=== PATIENT | male | born 1950 | race Caucasian/White ===

== ENCOUNTER → 2018-09-28 11:09 | Outpatient (CLI) | payer OTHER, MEDICARE, SELFPAY ==
[2018-09-28 11:50] LABS: Add Manual Diff / Slide Review NO; Basophils Absolute Auto 0 /uL (0-100); Basophils Percent Auto 0.7 % (0-2); Eosinophils Absolute Auto 100 /uL (0-450); Hematocrit 43.4 % (41-53); Hemoglobin 14.8 g/dL (13.5-17.5); Lymphocytes Absolute Auto 2000 /uL (1100-4500); Lymphocytes Percent Auto 30.2 % (25-40); Mean Corpuscular HGB Conc 34.1 % (30-36); Mean Corpuscular Hemoglobin 31.5 PG (26-34); Mean Corpuscular Volume 92.3 fL (80-100); Monocytes Absolute Auto 400 /uL (0-900); Monocytes Percent Auto 6.3 % (3-14); Neutrophils Absolute Auto 4000 /uL (1500-7000); Neutrophils Percent Auto 60.8 % (50-75); Platelet Count 242 X10^3/uL (150-400); Red Blood Cell Count 4.71 X10^6/uL (4.5-5.9); Red Cell Distribution Width 12.7 % (11.6-14.8); White Blood Cell Count 6.5 X10^3/uL (4.5-11.0)
[2018-09-28 12:06] LABS: Alanine Aminotransferase 48 IU/L (21-72); Albumin 4.5 g/dL (3.5-5.0); Albumin Globulin Ratio 1.6 (1.0-2.8); Alkaline Phosphatase 56 U/L (38-126); Aspartate Aminotransferase 36 IU/L (17-59); Bilirubin Total 0.5 mg/dL (0.2-1.3); Blood Urea Nitrogen 16 mg/dL (9-20); Calcium 9.1 mg/dL (8.4-10.2); Carbon Dioxide 30 mmol/L (22-32); Chloride 102 mmol/L (98-107); Cholesterol 167 mg/dL (140-199); Estimated Glomerular Filt Rate > 60.0 mL/min (>60); Globulin 2.9 g/dL (1.7-4.1); Glucose 117 mg/dL (80-110); HDL Cholesterol 39 mg/dL (40-60); HEMOLYSIS 37 (0-50); LDL Cholesterol Calculated 99 mg/dL (<100); Potassium 4.8 mmol/L (3.4-5.1); Sodium 141 mmol/L (137-145); Total Protein 7.4 g/dL (6.3-8.2); Triglycerides 144 mg/dL (35-150)
[2018-09-28 12:32] LABS: Prostate Specific Antigen Scrn 1.99 ng/mL (0.1-4.0)
[2018-09-28 14:11] LABS: Thyroid Stimulating Hormone 1.48 uIU/mL (0.47-4.68)
[2018-09-28 16:58] LABS: Creatinine Urine Random 167.9 mg/dL; Microalbumi Creatinin Ratio Ur 4.1 ug/mg CR (<30); Microalbumin Urine Random 0.7 mg/dL (0-1.6)
== END ==
PROVIDERS: Family Provider Family Medicine; PCP Family Medicine; Visit Provider Family Medicine
DX: E78.2 Mixed hyperlipidemia (principal); E78.5 Hyperlipidemia, unspecified; I10 Essential (primary) hypertension; Z12.5 Encounter for screening for malignant neoplasm of prostate; Z13.29 Encounter for screening for other suspected endocrine disorder
CPT/HCPCS: 36415; 80053; 80061; 82043; 82570; 84443; 85025; G0103

== ENCOUNTER → 2019-05-18 15:06 | Outpatient (CLI) | payer OTHER, MEDICARE, SELFPAY ==
[2019-05-20 18:25] LABS: Rubeola Measles IgG > 300.00 AU/mL (< 25.00)
== END ==
PROVIDERS: PCP Family Medicine; Visit Provider Family Medicine
DX: Z01.84 Encounter for antibody response examination (principal)
CPT/HCPCS: 36415; 86735; 86762; 86765

== ENCOUNTER → 2019-09-16 12:44 | Outpatient (CLI) | payer OTHER, MEDICARE, SELFPAY ==
[2019-09-16 13:14] LABS: Add Manual Diff / Slide Review NO; Basophils Absolute Auto 100 /uL (0-100); Basophils Percent Auto 0.6 % (0-2); Eosinophils Absolute Auto 100 /uL (0-450); Eosinophils Percent Auto 1.4 % (2-4); Hemoglobin 14.6 g/dL (13.5-17.5); Lymphocytes Absolute Auto 2100 /uL (1100-4500); Lymphocytes Percent Auto 22.8 % (25-40); Mean Corpuscular HGB Conc 34.7 % (30-36); Mean Corpuscular Hemoglobin 32.2 PG (26-34); Mean Corpuscular Volume 92.9 fL (80-100); Monocytes Absolute Auto 600 /uL (0-900); Monocytes Percent Auto 6.9 % (3-14); Neutrophils Absolute Auto 6300 /uL (1500-7000); Neutrophils Percent Auto 68.3 % (50-75); Platelet Count 252 X10^3/uL (150-400); Red Blood Cell Count 4.52 X10^6/uL (4.5-5.9); White Blood Cell Count 9.3 X10^3/uL (4.5-11.0)
[2019-09-16 13:15] LABS: Alanine Aminotransferase 31 IU/L (<50); Albumin 4.3 g/dL (3.5-5.0); Albumin Globulin Ratio 1.6 (1.0-2.8); Alkaline Phosphatase 47 U/L (38-126); Aspartate Aminotransferase 35 IU/L (17-59); BUN Creatinine Ratio 25.6 (6-22); Bilirubin Total 0.5 mg/dL (0.2-1.3); Blood Urea Nitrogen 23 mg/dL (9-20); Calcium 9.4 mg/dL (8.4-10.2); Carbon Dioxide 29 mmol/L (22-32); Chloride 105 mmol/L (98-107); Cholesterol 151 mg/dL (140-199); Estimated Glomerular Filt Rate > 60.0 mL/min (>60); Globulin 2.7 g/dL (1.7-4.1); Glucose 119 mg/dL (80-110); HDL Cholesterol 44 mg/dL (40-60); HEMOLYSIS < 15 (0-50); LDL Cholesterol Calculated 90 mg/dL (<100); Potassium 4.5 mmol/L (3.4-5.1); Sodium 142 mmol/L (137-145); Triglycerides 87 mg/dL (35-150)
== END ==
PROVIDERS: PCP Family Medicine; Referring Provider Family Medicine; Visit Provider Family Medicine
DX: Z00.00 Encounter for general adult medical examination without abnormal findings (principal); E78.2 Mixed hyperlipidemia
CPT/HCPCS: 36415; 80053; 80061; 85025

== ENCOUNTER → 2020-01-31 10:08 | Outpatient (CLI) | payer OTHER, MEDICARE, SELFPAY ==
--- NOTE | 2020-01-31 10:11 | DI.US.S_ITS ---
PROCEDURE: US ABDOMEN LIMITED INDICATIONS: RIGHT INGUINAL LUMP; POSSIBLE HERNIA TECHNIQUE: Real-time focused scanning was performed of the abdomen, with image documentation. COMPARISON: None. FINDINGS: The right inguinal region was interrogated with the high megahertz linear transducer. No hernia or mass or adenopathy is identified. IMPRESSION: Unremarkable limited ultrasound of the right inguinal region, with no evidence of hernia. Dictated by: Jac Montero M.D. on 01/31/2020 at 10:40 Approved by: Jac Montero M.D. on 01/31/2020 at 10:44
== END ==
PROVIDERS: PCP Family Medicine; Referring Provider Family Medicine; Visit Provider Family Medicine
DX: K40.90 Unilateral inguinal hernia, without obstruction or gangrene, not specified as recurrent (principal)
CPT/HCPCS: 76705

== ENCOUNTER → 2020-05-16 12:42 | Outpatient (CLI) | payer OTHER, MEDICARE, SELFPAY ==
--- NOTE | 2020-05-16 12:44 | DI.RAD.S_ITS ---
PROCEDURE: XR CHEST 2V INDICATIONS: Cough TECHNIQUE: 2 views of the chest were acquired. COMPARISON: [facility], , CHEST 2 VIEW, 12/03/2016, 20:46. FINDINGS: Surgical changes and devices: None. Lungs and pleura: Lungs are clear. No pleural effusions or pneumothorax. Mediastinum: Mediastinal contours are normal. Heart size is normal. Bones and chest wall: No suspicious bony abnormalities. Soft tissues appear unremarkable. IMPRESSION: No source for cough identified radiographically. Dictated by: Diego Sutherland [facility] Interpreted: Tam Richards MD on 05/16/2020 at 13:17 Approved by: Tam Richards M.D. on 05/16/2020 at 14:52
[2020-05-16 15:23] LABS: Prostate Specific Antigen Scrn 2.48 ng/mL (0.1-4.0)
== END ==
PROVIDERS: PCP Family Medicine; Referring Provider Family Medicine; Visit Provider Family Medicine
DX: R05 Cough (principal); Z12.5 Encounter for screening for malignant neoplasm of prostate
CPT/HCPCS: 36415; 71046; G0103

== ENCOUNTER → 2020-06-27 12:33 | Outpatient (CLI) | payer OTHER, MEDICARE, SELFPAY ==
[2020-06-27 14:43] LABS: Adenovirus F 40/41 Not Detected (Not Detect); Astrovirus Not Detected (Not Detect); Campylobacter Detected (Not Detect); Clostridium difficile toxin AB Not Detected (Not Detect); Cryptosporidium Not Detected (Not Detect); Cyclospora cayetanensis Not Detected (Not Detect); Entamoeba histolytica Not Detected (Not Detect); Enteroaggregative E.coli Not Detected (Not Detect); Enteropathogenic E.coli Not Detected (Not Detect); Enterotoxigenic E.coli It/st Not Detected (Not Detect); Giardia lamblia Not Detected (Not Detect); Norovirus GI/GII Not Detected (Not Detect); Plesiomonsa shigelloides Not Detected (Not Detect); Rotavirus A Not Detected (Not Detect); Salmonella Not Detected (Not Detect); Sapovirus Not Detected (Not Detect); Shiga-like toxin-prod E.coli Not Detected (Not Detect); Shigella/Enteroinvasive E.coli Not Detected (Not Detect); Vibrio Not Detected (Not Detect); Vibrio cholerae Not Detected (Not Detect); Yersinia enterocolitica Not Detected (Not Detect)
== END ==
PROVIDERS: PCP Family Medicine; Referring Provider Family Medicine; Visit Provider Family Medicine
DX: R19.7 Diarrhea, unspecified (principal)
CPT/HCPCS: 36415; 87507

== ENCOUNTER → 2020-10-23 12:36 | Outpatient (CLI) | payer OTHER, MEDICARE, SELFPAY ==
[2020-10-23 13:05] LABS: Add Manual Diff / Slide Review NO; Basophils Absolute Auto 0 /uL (0-100); Basophils Percent Auto 0.7 % (0-2); Eosinophils Absolute Auto 100 /uL (0-450); Eosinophils Percent Auto 1.8 % (2-4); Hematocrit 42.3 % (41-53); Hemoglobin 14.5 g/dL (13.5-17.5); Lymphocytes Absolute Auto 1700 /uL (1100-4500); Lymphocytes Percent Auto 30.1 % (25-40); Mean Corpuscular HGB Conc 34.3 % (30-36); Mean Corpuscular Hemoglobin 31.5 PG (26-34); Mean Corpuscular Volume 91.9 fL (80-100); Monocytes Absolute Auto 400 /uL (0-900); Monocytes Percent Auto 6.9 % (3-14); Neutrophils Absolute Auto 3500 /uL (1500-7000); Neutrophils Percent Auto 60.5 % (50-75); Platelet Count 203 X10^3/uL (150-400); Red Blood Cell Count 4.61 X10^6/uL (4.5-5.9); Red Cell Distribution Width 12.7 % (11.6-14.8); White Blood Cell Count 5.7 X10^3/uL (4.5-11.0)
[2020-10-23 14:13] LABS: Alanine Aminotransferase 31 IU/L (<50); Albumin 4.1 g/dL (3.5-5.0); Albumin Globulin Ratio 1.7 (1.0-2.8); Alkaline Phosphatase 42 U/L (38-126); Aspartate Aminotransferase 41 IU/L (17-59); Bilirubin Total 0.4 mg/dL (0.2-1.3); Blood Urea Nitrogen 34 mg/dL (9-20); Calcium 9.4 mg/dL (8.4-10.2); Carbon Dioxide 28 mmol/L (22-32); Chloride 102 mmol/L (98-107); Cholesterol 144 mg/dL (140-199); Estimated Glomerular Filt Rate > 60.0 mL/min (>60); Globulin 2.4 g/dL (1.7-4.1); Glucose 104 mg/dL (80-110); HDL Cholesterol 38 mg/dL (40-60); HEMOLYSIS < 15 (0-50); LDL Cholesterol Calculated 93 mg/dL (<100); Potassium 4.5 mmol/L (3.4-5.1); Sodium 139 mmol/L (137-145); Total Protein 6.5 g/dL (6.3-8.2); Triglycerides 66 mg/dL (35-150)
== END ==
PROVIDERS: PCP Family Medicine; Referring Provider Family Medicine; Visit Provider Family Medicine
DX: E78.2 Mixed hyperlipidemia (principal); F90.9 Attention-deficit hyperactivity disorder, unspecified type; G47.9 Sleep disorder, unspecified
CPT/HCPCS: 36415; 80053; 80061; 85025

== ENCOUNTER → 2021-01-06 10:06 | Outpatient (CLI) | payer OTHER, MEDICARE, SELFPAY ==
--- NOTE | 2021-01-07 14:19 | P.PCN_ITS ---
Cardiac Stress Test Report Referral & Results Date Patient Seen: 01/07/21 Requesting provider: Jamarcus Mckinnon Indication: Coronary artery disease Rest ECG: Unremarkable Procedure Note: This was started as an exercise Cardiolite test but patient clearly was unable to meet heart rate or blood pressure targets due to dyspnea and fatigue. Therefore was converted to a Lexiscan After both written and verbal informed consent the patient had an IV started by the diagnostic imaging RN and then was hooked up to the treadmill monitoring system. The patient was placed on the treadmill at 1 mile an hour with no elevation and was then injected with the Bertha scan material. The Cardiolite was then immediately administered. The patient spent an additional 2-3 minutes on the treadmill before being returned to the [facility] in the supine position. The patient had a normal response to all infused materials. Impression: There was some ST-T segment ?drooping ?that was upsloping in nature in the inferior and far lateral leads after infusion of Lexiscan material Please see perfusion imaging for further details regarding possible ischemia Please note: Actual ECG tracings can be found in the PACS system.
--- NOTE | 2021-01-07 19:14 | DI.NM.S_ITS ---
DATE OF SERVICE: 01/06/2021 PROCEDURE: Pharmacological perfusion study. INDICATIONS: Shortness of breath with known coronary artery disease. RADIOPHARMACEUTICAL: 25.8 millicurie technetium-99m Myoview IV was injected at stress and 13.0 millicurie technetium-99m Myoview IV was injected at rest. CARDIAC STRESS: The patient underwent IV Lexiscan perfusion study under the supervision of an attending staff ,as per standard intravenous Lexiscan protocol. Prior to that, the patient walked on Gomez protocol for 3 minutes and 20 seconds, however developed fatigue. Heart rate remained less than 100, hence test was converted to IV Lexiscan. Baseline rhythm was sinus. There were some nonspecific ST changes. During walking, as well as Lexiscan, there were no convincing ischemic changes. There was no significant sustained arrhythmias. RAW DATA: There is increased subdiaphragmatic activity. GATED STUDY: Resting LV ejection fraction is 70 percent and stress LV ejection fraction 71 percent. Resting end-diastolic volume 106 mL. TID ratio 0.95, which is within normal limits. Lung/heart ratio 0.28, which is within normal limits. MYOCARDIAL PERFUSION: Stress supine, resting supine and stress prone images were compared to each other. The stress supine and resting supine images revealed small size, mildly decreased perfusion of basal inferior wall, which got resolved during prone images, suggestive of diaphragmatic tissue attenuation artifact. CONCLUSION: I will call this study a normal myocardial perfusion study. Stress prone images revealed normal myocardial perfusion. No convincing ischemia or infarction pattern. Left ventricular function is preserved. No convincing ischemic electrocardiographic changes. The patient has poor exercise tolerance. Had exercise perfusion study in March 2010, at that time, also, had similar perfusion, but he was able to walk for 7 minutes and 36 seconds. Noble Presley - ZOHREH/winnie/ashwini doc#: [id number]/job#: [id number] dd: 01/07/2021 17:25:00 dt: 01/07/2021 18:17:00 DICTATING MD/COPIES TO: Bea Lira MD COPIES MNE: LORENZO;
== END ==
PROVIDERS: PCP Family Medicine; Referring Provider Family Medicine; Visit Provider Family Medicine
DX: Z01.812 Encounter for preprocedural laboratory examination (principal); I25.10 Atherosclerotic heart disease of native coronary artery without angina pectoris; R06.02 Shortness of breath; Z20.822 Contact with and (suspected) exposure to COVID-19
CPT/HCPCS: 78452; 87635; 93016; 93017; 93018; A9502; J2785

== ENCOUNTER → 2021-01-06 11:45 | Outpatient (CLI) | payer OTHER, MEDICARE, SELFPAY ==
[2021-01-06 13:41] LABS: COVID19 -Nasal RAPID Negative (Negative)
== END ==
PROVIDERS: PCP Family Medicine; Referring Provider Physician Assistant; Visit Provider Physician Assistant
DX: Z01.812 Encounter for preprocedural laboratory examination (principal); Z20.822 Contact with and (suspected) exposure to COVID-19
CPT/HCPCS: 87635

== ENCOUNTER → 2021-06-05 14:40 | Outpatient (CLI) | payer OTHER, MEDICARE, SELFPAY ==
--- NOTE | 2021-06-05 14:43 | DI.CT.S_ITS ---
PROCEDURE: CT CHEST WO CON INDICATIONS: Lung nodule 6 month repeat TECHNIQUE: Noncontrast 2.0-2.5 mm thick sections acquired from the pulmonary apices to the posterior costophrenic angles. 7 mm thick axial MIP and 5 mm coronal and sagittal reformats were then acquired. A low radiation dose technique was utilized. COMPARISON: [facility], CT, CT LOW DOSE LUNG CA SCREENING, 11/09/2020, 11:03. November 09, 2020. FINDINGS: Image quality: Diagnostic, given the low radiation dose technique. Lungs and pleura: No consolidation, pleural effusion, or pneumothorax. Redemonstrated 1.3 cm, centrally calcified nodule along the right upper lobe pleura (series 2, image 11). 5.8 mm ground-glass nodule in the left upper lobe (series 5, image 21), unchanged. 5.1 mm ground-glass nodule in the right upper lobe (series 5, image 63), unchanged. 3.2 mm ground-glass nodule in the left upper lobe (series 3, image 56), unchanged. Mediastinum: Heart size is normal. No pericardial effusion. Coronary artery calcification. No mediastinal adenopathy by size criteria. Thoracic aorta and central pulmonary arteries are normal in size. The esophagus is normal in caliber. Trace hiatal hernia. Bones and chest wall: No suspicious bony lesions. No vertebral body compression fractures. No axillary or supraclavicular adenopathy by size criteria. Thyroid gland demonstrates homogeneous attenuation. Abdomen: Visualized upper abdomen solid organs and bowel loops appear normal in the absence of contrast. IMPRESSION: 1. Stable 1.3 cm, centrally calcified nodule along the right upper lobe pleura. 2. Ground-glass nodules in the left upper lobe measuring up to 5.8 mm as detailed above. 3. Ground-glass nodule in the right upper lobe, measuring up to 5.1 mm. Lung Rads: 2. Consider CT lung screen follow-up in 12 months. Dictated by: Armin Nuñez M.D. on 06/05/2021 at 18:30 Approved by: Armin Nuñez M.D. on 06/05/2021 at 18:57
== END ==
PROVIDERS: PCP Family Medicine; Referring Provider Family Medicine; Visit Provider Family Medicine
DX: J43.2 Centrilobular emphysema (principal); R91.8 Other nonspecific abnormal finding of lung field; I25.10 Atherosclerotic heart disease of native coronary artery without angina pectoris
CPT/HCPCS: 71250

== ENCOUNTER → 2021-09-30 10:46 | Outpatient (CLI) | payer OTHER, MEDICARE, SELFPAY ==
--- NOTE | 2021-09-30 10:48 | DI.RAD.S_ITS ---
PROCEDURE: XR CHEST 2V INDICATIONS: Wheezing, emphysema TECHNIQUE: 2 views of the chest were acquired. COMPARISON: [facility], CR, XR CHEST 2V, 05/16/2020, 12:33. FINDINGS: Surgical changes and devices: None. Lungs and pleura: Lungs are clear. No pleural effusions or pneumothorax. Mediastinum: Mediastinal contours are normal. Heart size is normal. Bones and chest wall: No suspicious bony abnormalities. Soft tissues appear unremarkable. IMPRESSION: No acute cardiopulmonary process demonstrated radiographically. Dictated by: Gurdeep Ortiz M.D. on 09/30/2021 at 11:49 Approved by: Gurdeep Ortiz M.D. on 09/30/2021 at 11:53
== END ==
PROVIDERS: PCP Family Medicine; Referring Provider Family Medicine; Visit Provider Family Medicine
DX: R06.2 Wheezing (principal); J43.9 Emphysema, unspecified
CPT/HCPCS: 71046

== ENCOUNTER → 2021-10-27 14:05 | Outpatient (CLI) | payer OTHER, MEDICARE, SELFPAY ==
[2021-10-27 14:38] LABS: Add Manual Diff / Slide Review NO; Basophils Absolute Auto 0 /uL (0-100); Basophils Percent Auto 0.8 % (0-2); Eosinophils Absolute Auto 100 /uL (0-450); Eosinophils Percent Auto 2.5 % (2-4); Hematocrit 41.9 % (41-53); Hemoglobin 14.4 g/dL (13.5-17.5); Lymphocytes Absolute Auto 1600 /uL (1100-4500); Lymphocytes Percent Auto 29.1 % (25-40); Mean Corpuscular HGB Conc 34.3 % (30-36); Mean Corpuscular Hemoglobin 31.7 PG (26-34); Mean Corpuscular Volume 92.3 fL (80-100); Monocytes Absolute Auto 400 /uL (0-900); Monocytes Percent Auto 7.7 % (3-14); Neutrophils Absolute Auto 3400 /uL (1500-7000); Neutrophils Percent Auto 59.9 % (50-75); Platelet Count 190 X10^3/uL (150-400); Red Blood Cell Count 4.53 X10^6/uL (4.5-5.9); Red Cell Distribution Width 12.9 % (11.6-14.8); White Blood Cell Count 5.6 X10^3/uL (4.5-11.0)
[2021-10-27 16:16] LABS: Alanine Aminotransferase 32 IU/L (<50); Albumin 4.2 g/dL (3.5-5.0); Albumin Globulin Ratio 1.8 (1.0-2.8); Alkaline Phosphatase 46 U/L (38-126); Aspartate Aminotransferase 31 IU/L (17-59); BUN Creatinine Ratio 19.2 (6-22); Bilirubin Total 0.5 mg/dL (0.2-1.3); Blood Urea Nitrogen 20 mg/dL (9-20); Carbon Dioxide 26 mmol/L (22-32); Chloride 105 mmol/L (98-107); Cholesterol 161 mg/dL (140-199); Estimated Glomerular Filt Rate > 60.0 mL/min (>60); Globulin 2.4 g/dL (1.7-4.1); Glucose 114 mg/dL (80-110); HDL Cholesterol 42 mg/dL (40-60); HEMOLYSIS < 15 (0-50); LDL Cholesterol Calculated 101 mg/dL (<100); Potassium 4.8 mmol/L (3.4-5.1); Sodium 138 mmol/L (137-145); Total Protein 6.6 g/dL (6.3-8.2); Triglycerides 90 mg/dL (35-150)
[2021-10-27 16:44] LABS: Prostate Specific Antigen Scrn 2.74 ng/mL (0.1-4.0)
== END ==
PROVIDERS: PCP Family Medicine; Referring Provider Family Medicine; Visit Provider Family Medicine
DX: E78.2 Mixed hyperlipidemia (principal); I25.10 Atherosclerotic heart disease of native coronary artery without angina pectoris; J43.9 Emphysema, unspecified; Z12.5 Encounter for screening for malignant neoplasm of prostate
CPT/HCPCS: 36415; 80053; 80061; 85025; G0103

== ENCOUNTER → 2022-01-30 16:53 | Outpatient (CLI) | payer OTHER, MEDICARE, SELFPAY ==
--- NOTE | 2022-01-30 | DI.RAD.S_ITS ---
PROCEDURE: XR CHEST 2V INDICATIONS: PNEUMONIA TECHNIQUE: 2 views of the chest were acquired. COMPARISON: [facility], CR, XR CHEST 2V, 09/30/2021, 10:41. FINDINGS: Surgical changes and devices: None. Lungs and pleura: Lungs are clear. No pleural effusions or pneumothorax. Mediastinum: Mediastinal contours are normal. Heart size is normal. Bones and chest wall: No suspicious bony abnormalities. Soft tissues appear unremarkable. IMPRESSION: No acute finding. Dictated by: Gurdeep Ortiz M.D. on 01/30/2022 at 20:20 Approved by: Gurdeep Ortiz M.D. on 01/30/2022 at 20:20
--- NOTE | 2022-01-30 | DI.RAD.S_ITS ---
PROCEDURE: XR ABDOMEN MIN 2V INDICATIONS: PNUEMONIA TECHNIQUE: 2 views of the abdomen were acquired. COMPARISON: None. FINDINGS: Surgical changes and devices: None. Bowel: No pneumoperitoneum. The bowel gas pattern is normal. Soft tissues: No masses; visualized solid organ contours appear normal in size. No suspicious abdominal calcifications. Bones: No suspicious bony abnormalities. IMPRESSION: No acute finding. Dictated by: Gurdeep Ortiz M.D. on 01/30/2022 at 20:20 Approved by: Gurdeep Ortiz M.D. on 01/30/2022 at 20:20
[2022-01-30 18:37] LABS: Add Manual Diff / Slide Review NO; Basophils Absolute Auto 100 /uL (0-100); Eosinophils Absolute Auto 300 /uL (0-450); Eosinophils Percent Auto 2.6 % (2-4); Hematocrit 34.7 % (41-53); Hemoglobin 12.1 g/dL (13.5-17.5); Lymphocytes Absolute Auto 1700 /uL (1100-4500); Lymphocytes Percent Auto 16.5 % (25-40); Mean Corpuscular Hemoglobin 31.6 PG (26-34); Mean Corpuscular Volume 90.4 fL (80-100); Monocytes Absolute Auto 800 /uL (0-900); Monocytes Percent Auto 7.3 % (3-14); Neutrophils Absolute Auto 7700 /uL (1500-7000); Neutrophils Percent Auto 72.6 % (50-75); Platelet Count 336 X10^3/uL (150-400); Red Blood Cell Count 3.84 X10^6/uL (4.5-5.9); Red Cell Distribution Width 14.6 % (11.6-14.8); White Blood Cell Count 10.6 X10^3/uL (4.5-11.0)
[2022-01-30 18:44] LABS: INR 1.1 (0.9-1.3); Prothrombin Time 11.9 SECONDS (10.1-12.7)
[2022-01-30 18:52] LABS: Alanine Aminotransferase 217 IU/L (<50); Albumin 3.6 g/dL (3.5-5.0); Alkaline Phosphatase 310 U/L (38-126); Aspartate Aminotransferase 119 IU/L (17-59); BUN Creatinine Ratio 15.5 (6-22); Bilirubin Total 2.5 mg/dL (0.2-1.3); Blood Urea Nitrogen 13 mg/dL (9-20); C-Reactive Protein Quant 4.1 mg/dL (<1.0); Calcium 8.7 mg/dL (8.4-10.2); Carbon Dioxide 31 mmol/L (22-32); Chloride 101 mmol/L (98-107); Estimated Glomerular Filt Rate > 60 mL/min (>60); Gamma Glutamyl Transpeptidase 528 U/L (15-73); Globulin 3.6 g/dL (1.7-4.1); Glucose 102 mg/dL (80-110); HEMOLYSIS < 15 (0-50); Potassium 4.2 mmol/L (3.4-5.1); Sodium 138 mmol/L (137-145); Total Protein 7.2 g/dL (6.3-8.2)
[2022-01-30 19:06] LABS: Procalcitonin 0.14 ng/mL (<0.5)
[2022-01-30 19:28] LABS: Appearance Urine UA SL CLOUDY; Bilirubin Urine UA 1+ (NEGATIVE); Glucose Urine UA NEGATIVE (Negative); Ketones Urine UA NEGATIVE (NEGATIVE); Leukocyte Esterase Urine UA NEGATIVE (NEGATIVE); Nitrite Urine UA NEGATIVE (Negative); Occult Blood Urine UA NEGATIVE (Negative); Protein Urine UA TRACE (Negative); Specific Gravity Urine UA 1.025 (1.000-1.035); pH Urine UA 5.5 (4.5-8.0)
[2022-01-30 19:32] LABS: Color Urine UA Amber
[2022-01-30 19:33] LABS: Ictotest Urine Positive (Negative)
[2022-01-30 19:34] LABS: Bacteria Urine Occasional (0-1); RBC Urine None Seen (0-5/HPF); Squamous Epithelial Cell Urine 0-1 /HPF (0-5/HPF); WBC Urine 1-5/HPF (0-5/HPF)
[2022-01-30 19:35] LABS: Culture Indicated Urine Specimen Cultured
== END ==
PROVIDERS: PCP Family Medicine; Referring Provider Pediatrics; Visit Provider Pediatrics
DX: I25.10 Atherosclerotic heart disease of native coronary artery without angina pectoris (principal); J18.9 Pneumonia, unspecified organism; J43.9 Emphysema, unspecified; R18.8 Other ascites; R30.0 Dysuria; R74.8 Abnormal levels of other serum enzymes; R91.1 Solitary pulmonary nodule
CPT/HCPCS: 36415; 71046; 74019; 80053; 81001; 82977; 83605; 84145; 85025; 85610; 86140; 87086

== ENCOUNTER → 2022-02-24 11:16 | Outpatient (CLI) | payer OTHER, MEDICARE, SELFPAY ==
[2022-02-24 12:03] LABS: Add Manual Diff / Slide Review NO; Basophils Absolute Auto 0 /uL (0-100); Basophils Percent Auto 0.8 % (0-2); Eosinophils Absolute Auto 100 /uL (0-450); Eosinophils Percent Auto 3.1 % (2-4); Hematocrit 37.2 % (41-53); Hemoglobin 12.8 g/dL (13.5-17.5); Lymphocytes Absolute Auto 1400 /uL (1100-4500); Lymphocytes Percent Auto 29.8 % (25-40); Mean Corpuscular HGB Conc 34.5 % (30-36); Mean Corpuscular Hemoglobin 31.6 PG (26-34); Mean Corpuscular Volume 91.4 fL (80-100); Monocytes Absolute Auto 300 /uL (0-900); Neutrophils Absolute Auto 2800 /uL (1500-7000); Neutrophils Percent Auto 59.3 % (50-75); Platelet Count 212 X10^3/uL (150-400); Red Blood Cell Count 4.07 X10^6/uL (4.5-5.9); Red Cell Distribution Width 13.9 % (11.6-14.8); White Blood Cell Count 4.8 X10^3/uL (4.5-11.0)
[2022-02-24 12:42] LABS: Alanine Aminotransferase 96 IU/L (<50); Albumin Globulin Ratio 1.6 (1.0-2.8); Alkaline Phosphatase 169 U/L (38-126); Aspartate Aminotransferase 74 IU/L (17-59); Bilirubin Total 0.9 mg/dL (0.2-1.3); Blood Urea Nitrogen 19 mg/dL (9-20); Calcium 9.2 mg/dL (8.4-10.2); Carbon Dioxide 27 mmol/L (22-32); Chloride 105 mmol/L (98-107); Estimated Glomerular Filt Rate > 60 mL/min (>60); Globulin 2.5 g/dL (1.7-4.1); Glucose 112 mg/dL (80-110); HEMOLYSIS < 15 (0-50); Potassium 4.8 mmol/L (3.4-5.1); Sodium 140 mmol/L (137-145); Total Protein 6.5 g/dL (6.3-8.2)
[2022-02-24 13:35] LABS: Vitamin B12 720 pg/mL (239-931)
[2022-02-27 08:33] LABS: Vitamin B1 268.6 nmol/L (66.5-200.0)
== END ==
PROVIDERS: PCP Family Medicine; Referring Provider Family Medicine; Visit Provider Family Medicine
DX: I25.10 Atherosclerotic heart disease of native coronary artery without angina pectoris (principal); J43.9 Emphysema, unspecified; K76.9 Liver disease, unspecified; K85.90 Acute pancreatitis without necrosis or infection, unspecified; E51.9 Thiamine deficiency, unspecified
CPT/HCPCS: 36415; 80053; 82607; 84425; 85025

== ENCOUNTER → 2023-01-06 13:35 | Outpatient (CLI) | payer OTHER, MEDICARE, SELFPAY ==
[2023-01-06 14:53] LABS: Add Manual Diff / Slide Review NO; Basophils Absolute Auto 0 /uL (0-100); Basophils Percent Auto 0.6 % (0-2); Eosinophils Absolute Auto 100 /uL (0-450); Eosinophils Percent Auto 1.2 % (2-4); Hematocrit 42.3 % (41-53); Hemoglobin 14.2 g/dL (13.5-17.5); Lymphocytes Absolute Auto 1500 /uL (1100-4500); Lymphocytes Percent Auto 27.9 % (25-40); Mean Corpuscular HGB Conc 33.6 % (30-36); Mean Corpuscular Hemoglobin 31.5 PG (26-34); Mean Corpuscular Volume 93.8 fL (80-100); Monocytes Absolute Auto 300 /uL (0-900); Monocytes Percent Auto 6.3 % (3-14); Neutrophils Absolute Auto 3400 /uL (1500-7000); Platelet Count 195 X10^3/uL (150-400); Red Blood Cell Count 4.51 X10^6/uL (4.5-5.9); Red Cell Distribution Width 13.6 % (11.6-14.8); White Blood Cell Count 5.4 X10^3/uL (4.5-11.0)
[2023-01-06 15:05] LABS: HEMOLYSIS 21 (0-50); Iron 89 ug/dL (49-181)
[2023-01-06 15:10] LABS: Alanine Aminotransferase 43 IU/L (<50); Albumin 4.4 g/dL (3.5-5.0); Albumin Globulin Ratio 1.8 (1.0-2.8); Alkaline Phosphatase 64 U/L (38-126); Aspartate Aminotransferase 34 IU/L (17-59); BUN Creatinine Ratio 29.5 (6-22); Bilirubin Total 0.6 mg/dL (0.2-1.3); Blood Urea Nitrogen 31 mg/dL (9-20); Calcium 9.4 mg/dL (8.4-10.2); Carbon Dioxide 27 mmol/L (22-32); Chloride 103 mmol/L (98-107); Cholesterol 138 mg/dL (140-199); Estimated Glomerular Filt Rate > 60 mL/min (>60); Globulin 2.5 g/dL (1.7-4.1); Glucose 104 mg/dL (80-110); HDL Cholesterol 38 mg/dL (40-60); HEMOLYSIS < 15 (0-50); LDL Cholesterol Calculated 79 mg/dL (<100); Potassium 4.7 mmol/L (3.4-5.1); Sodium 140 mmol/L (137-145); Total Protein 6.9 g/dL (6.3-8.2); Triglycerides 104 mg/dL (35-150)
[2023-01-06 15:17] LABS: Percent Iron Saturation 24 % (20-50); Total Iron Binding Capacity 372 ug/dL (261-462); Transferrin 267 mg/dL (206-381)
[2023-01-06 15:40] LABS: Ferritin 58 ng/mL (18-464)
== END ==
PROVIDERS: PCP Family Medicine; Referring Provider Family Medicine; Visit Provider Family Medicine
DX: D49.6 Neoplasm of unspecified behavior of brain (principal); E78.2 Mixed hyperlipidemia; F90.9 Attention-deficit hyperactivity disorder, unspecified type; I25.10 Atherosclerotic heart disease of native coronary artery without angina pectoris; K76.9 Liver disease, unspecified
CPT/HCPCS: 36415; 80053; 80061; 82728; 83540; 83550; 85025

== ENCOUNTER → 2023-05-11 16:37 | Outpatient (CLI) | payer OTHER, MEDICARE, SELFPAY ==
[2023-05-11 17:31] LABS: Add Manual Diff / Slide Review NO; Basophils Absolute Auto 0 /uL (0-100); Basophils Percent Auto 0.6 % (0-2); Eosinophils Absolute Auto 100 /uL (0-450); Eosinophils Percent Auto 0.7 % (2-4); Hematocrit 39.8 % (41-53); Hemoglobin 13.9 g/dL (13.5-17.5); Lymphocytes Absolute Auto 1700 /uL (1100-4500); Lymphocytes Percent Auto 24.1 % (25-40); Mean Corpuscular HGB Conc 34.8 % (30-36); Mean Corpuscular Hemoglobin 32.2 PG (26-34); Mean Corpuscular Volume 92.6 fL (80-100); Monocytes Absolute Auto 400 /uL (0-900); Monocytes Percent Auto 6.2 % (3-14); Neutrophils Absolute Auto 4700 /uL (1500-7000); Neutrophils Percent Auto 68.4 % (50-75); Platelet Count 187 X10^3/uL (150-400); Red Cell Distribution Width 13.1 % (11.6-14.8); White Blood Cell Count 6.9 X10^3/uL (4.5-11.0)
[2023-05-11 17:46] LABS: Alanine Aminotransferase 31 IU/L (<50); Albumin 4.3 g/dL (3.5-5.0); Albumin Globulin Ratio 1.8 (1.0-2.8); Alkaline Phosphatase 57 U/L (38-126); Aspartate Aminotransferase 34 IU/L (17-59); BUN Creatinine Ratio 29.8 (6-22); Bilirubin Total 0.5 mg/dL (0.2-1.3); Blood Urea Nitrogen 31 mg/dL (9-20); Calcium 9.9 mg/dL (8.4-10.2); Carbon Dioxide 28 mmol/L (22-32); Chloride 100 mmol/L (98-107); Estimated Glomerular Filt Rate > 60 mL/min (>60); Globulin 2.4 g/dL (1.7-4.1); Glucose 98 mg/dL (80-110); HEMOLYSIS < 15 (0-50); Lipase 87 U/L (23-300); Potassium 4.4 mmol/L (3.4-5.1); Sodium 137 mmol/L (137-145); Total Protein 6.7 g/dL (6.3-8.2)
== END ==
PROVIDERS: PCP Family Medicine; Referring Provider Family Medicine; Visit Provider Family Medicine
DX: K42.9 Umbilical hernia without obstruction or gangrene (principal); R10.9 Unspecified abdominal pain
CPT/HCPCS: 36415; 80053; 83690; 85025

== ENCOUNTER 2023-05-13 13:35 | Emergency (ER) | payer OTHER, MEDICARE, SELFPAY ==
[2023-05-13 13:37] VITALS: BP 131/69; PULSE 67; RESP 20; TEMP 36.9; O2SAT 100; BMI 24.6
--- NOTE | 2023-05-13 14:42 | PC.NURSE ---
pt ambulatory to room 12 with steady gait, no acute medical distress noted.
--- NOTE | 2023-05-13 14:48 | ED_ITS ---
HPI - Abdominal Pain General Chief Complaint: Abdominal Pain Stated Complaint: pain lower RT Abd Quad/ Time Seen by Provider: 05/13/23 14:37 Source: patient Mode of arrival: Ambulatory History of Present Illness HPI narrative: Patient is a 73-year-old male who has a known umbilical hernia presenting today with right lower quadrant and groin swelling. He reports that he was looking on himself mirror today he had an obvious swelling he took a picture of it send it to his . I have seen it myself the swelling is now gone he is no longer having any pain. He reports that it hurts to lean up against the counter he feels like his belt is keeping it in. He is no changes in bowel or bladder habits no nausea or vomiting. His umbilical hernia comes out quite regularly but not a problem today. He is an outpatient ultrasound scheduled for his umbilical hernia today in about 20 minutes. However he is concerned with the right inguinal hernia he which he has never had before. He denies any testicular pain or swelling Related Data Home Medications Medication Instructions Recorded Confirmed omeprazole 20 mg tablet,delayed 20 mg PO DAILY 09/27/19 05/11/23 release cholecalciferol (vitamin D3) 50 50 mcg PO DAILY 01/30/22 05/11/23 mcg (2,000 unit) capsule multivitamin 1 tab PO DAILY 01/30/22 05/11/23 Previous Rx's Medication Instructions Recorded ibuprofen 600 mg tablet See Rx Instructions PO Q6H PRN 01/26/20 fever or pain #90 tabs sildenafil 100 mg tablet (Viagra) 100 mg PO DAILY PRN sexual 05/16/20 activity #20 tabs Parking Permit... #1 ea 04/07/22 lisinopril 5 mg tablet 5 mg PO DAILY #90 tabs 08/24/22 albuterol sulfate 90 mcg/actuation 2 puff inhalation BID PRN 10/15/22 aerosol inhaler (Proventil HFA) shortness of breath or wheezing #8.5 grams lorazepam 1 mg tablet See Rx Instructions .Route 11/06/22 .COMPLEX #60 tabs nabumetone 500 mg tablet 1,000 mg (2 x 500 mg) PO QDAY #180 11/13/22 tabs simvastatin 40 mg tablet (Zocor) 40 mg PO Q DAY #90 tabs 11/16/22 trazodone 150 mg tablet 150 mg PO Q DAY #90 tabs 11/19/22 buspirone 10 mg tablet See Rx Instructions .Route 03/01/23 .COMPLEX #360 tabs hydrocodone 5 mg-acetaminophen 325 1 tab PO Q6HP PRN pain #50 tabs 03/25/23 mg tablet prazosin 1 mg capsule 1 mg PO ONCE PM #30 caps 04/26/23 Allergies Allergy/AdvReac Type Severity Reaction Status Date / Time No Known Drug Allergies Allergy Verified 05/13/23 13:44 Review of Systems Review of Systems ROS Unobtainable: All systems reviewed & are unremarkable except as noted in HPI and below Patient History Medical History Pancreatitis Abdominal distension Icterus Hepatic dysfunction Emphysema lung Pulmonary nodule 1 cm or greater in diameter Coronary artery disease Vision disorder Erectile dysfunction ADHD Shoulder pain Chronic back pain Measles Chicken pox Tinnitus Hearing loss Cataracts, bilateral Surgical History History of cataract removal with insertion of prosthetic lens History of cataract removal with insertion of prosthetic lens Status post rotator cuff repair Status post rotator cuff repair Status post tonsillectomy and adenoidectomy Family History Father CAD (coronary artery disease) Parkinson's disease Alzheimer's disease Grandmother Cancer Mother MS (multiple sclerosis) Social History Smoking Status: Former smoker Smoking Status: Former smoker alcohol intake frequency: 0-2 drinks per day Substance Use Type: does not use Exam Initial Vital Signs Initial Vital Signs: Vital Signs Temperature 98.4 F 05/13/23 13:37 Pulse Rate 67 05/13/23 13:37 Respiratory Rate 20 05/13/23 13:37 Blood Pressure 131/69 05/13/23 13:37 Pulse Oximetry 100 05/13/23 13:37 Oxygen Delivery Method Room Air 05/13/23 13:37 GENERAL: Well-appearing, well-nourished and in no acute distress. CARDIOVASCULAR: peripheral pulses in tact, cap refill <2 sec RESPIRATORY: No respiratory distress, speaks in full sentences without diffic ulty ABDOMEN: Soft, nontender, no guarding or rebound no umbilical hernia appreciated nondistended nontender normal bowel sounds : No inguinal hernia appreciated no swelling. EXTREMITIES: Normal range of motion, no clubbing or edema. Neurovascularly intact NEUROLOGICAL: Cranial nerves II through XII grossly intact. Normal gait and speech. SKIN: Warm, dry, no petechiae, no rashes or lesions. Course Orders Ordered: ED Orders 05/13/23 13:56 Complete Blood Count AUTO DIFF Stat Comprehensive Metabolic Panel Stat Lipase Stat EKG-12 Lead Stat Discontinued Medications Ondansetron HCl (Ondansetron 4 Mg Odt) 4 mg PO NOW PRN PRN Reason: Nausea And Vomiting Ondansetron HCl (Ondansetron 4 Mg/2 Ml Inj) 4 mg IV NOW PRN PRN Reason: Nausea And Vomiting Vital Signs Vital signs: Vital Signs - 8 hr 05/13/23 13:37 Temperature 98.4 F Pulse Rate 67 Respiratory Rate 20 Blood Pressure 131/69 Pulse Oximetry 100 Oxygen Delivery Method Room Air MDM - Abdominal Pain MDM Narrative Medical decision making narrative: Patient 73-year-old male presents today with what is likely an inguinal hernia. Happened today there is a picture of it what he is describing a bulging in the groin is classically an inguinal hernia no clear cause for it. It is not currently present abdomen is soft and nontender. Umbilical hernia is also not present. He is an outpatient ultrasound scheduled in 20 minutes. He overall appears well afebrile. Hernia is not present on exam but was obviously present in the picture and from what he is describing. At this time recommend outpatient surgery referral outpatient ultrasound we discussed when to return to the ED and follow-up as needed. At this time there is no indication for blood work or imaging from the emergency department Discharge Plan Departure Patient Disposition: Home Clinical Impression: Inguinal hernia Instructions: Groin Hernia -- Adult Activity Restrictions/Additional Instructions: *You have been diagnosed with inguinal hernia *What to do: At this time you have an inguinal hernia in the right side unlikely an umbilical hernia. If it should come out please let down and try to push it back in herself. If you are unable to push it back in or it is exquisitely tender or changing color than you need to come into the ED. At this time I recommend they follow up with an outpatient ultrasound in his already scheduled for today. You will also likely need follow-up with surgery for elective repair of both *Continue to take medications as directed *Follow up with your primary care provider in 2-3 days or call [phone] Call General surgery for follow-up *Return to ER if you should have increasing pain unable to push in hernia or any new, worsening or concerning symptoms Prescriptions: No Action ibuprofen 600 mg tablet See Rx Instructions PO Q6H PRN (Reason: fever or pain) Qty: 90 1RF Rx Instructions: 1 to 2 tabs PO every 6 hours PRN; lisinopril 5 mg tablet 5 mg PO DAILY Qty: 90 3RF albuterol sulfate [Proventil HFA] 90 mcg/actuation HFA aerosol inhaler 2 puff inhalation BID PRN (Reason: shortness of breath or wheezing) Qty: 8.5 3RF lorazepam 1 mg tablet See Rx Instructions .ROUTE .COMPLEX Qty: 60 3RF Dose Instruction: TAKE ONE-HALF TO ONE TABLET BY MOUTH TWICE DAILY NEEDED FOR SLEEP Rx Instructions: TAKE ONE-HALF TO ONE TABLET BY MOUTH TWICE DAILY NEEDED FOR SLEEP nabumetone 500 mg tablet 1,000 mg PO QDAY Qty: 180 3RF simvastatin [Zocor] 40 mg tablet 40 mg PO Q DAY Qty: 90 3RF trazodone 150 mg tablet 150 mg PO Q DAY Qty: 90 3RF buspirone 10 mg tablet See Rx Instructions .ROUTE .COMPLEX Qty: 360 0RF Dose Instruction: TAKE FOUR TABLETS BY MOUTH AT BEDTIME Rx Instructions: TAKE FOUR TABLETS BY MOUTH AT BEDTIME hydrocodone-acetaminophen 5-325 mg tablet 1 tab PO Q6HP PRN (Reason: pain) Qty: 50 0RF prazosin 1 mg capsule 1 mg PO ONCE PM Qty: 30 2RF sildenafil [Viagra] 100 mg tablet 100 mg PO DAILY PRN (Reason: sexual activity) Qty: 20 5RF Rx Instructions: administer 30 minutes to 4 hours before activity multivitamin Tablet 1 tab PO DAILY cholecalciferol (vitamin D3) 50 mcg (2,000 unit) capsule 50 mcg PO DAILY (DME) Parking Permit... See Rx Instructions .Route .MEDSUPPLY Qty: 1 0RF Rx Instructions: I find this patient to be medically disabled and qualified for Disabled Parking as indicated a, and signed on the accompanying Disabled Parking Application for Individuals. omeprazole 20 mg tablet,delayed release (DR/EC) 20 mg PO DAILY Referrals: [facility] [Provider Group] Jamarcus Mckinnon MD [Primary Care Provider] - Stand Alone Forms: Patient Portal/API
--- NOTE | 2023-05-13 15:01 | PC.NURSE ---
Dr. Kellogg at bedside for eval
== END 2023-05-13 15:21 | disposition home or self-care (01) ==
PROVIDERS: Emergency Provider Emergency Medicine; PCP Family Medicine
DX: K40.90 Unilateral inguinal hernia, without obstruction or gangrene, not specified as recurrent (principal); K42.9 Umbilical hernia without obstruction or gangrene; R10.9 Unspecified abdominal pain
CPT/HCPCS: 76705; 99281; 99283

== ENCOUNTER → 2023-05-13 15:18 | Outpatient (CLI) | payer OTHER, MEDICARE, SELFPAY ==
--- NOTE | 2023-05-13 15:20 | DI.US.S_ITS ---
PROCEDURE: US ABDOMEN LIMITED INDICATIONS: UMBILICAL HERNIA TECHNIQUE: Real-time focused scanning was performed of the abdomen, with image documentation. COMPARISON: [facility], CT, CT CHEST ABDOMEN PELVIS WITH CONTRAST, 01/24/2022, 16:59. [facility], US, US ABDOMEN LIMITED, 01/31/2020, 10:19. FINDINGS: There is infraumbilical ventral abdominal wall defect measures 0.8 cm in with and containing fat only. No herniated bowel loops are noted. IMPRESSION: Small infraumbilical hernia containing fat only. Dictated by: Tam Richards M.D. on 05/13/2023 at 21:34 Approved by: Tam Richards M.D. on 05/13/2023 at 21:36
== END ==
PROVIDERS: PCP Family Medicine; Referring Provider Family Medicine; Visit Provider Family Medicine
DX: K42.9 Umbilical hernia without obstruction or gangrene (principal); R10.9 Unspecified abdominal pain
CPT/HCPCS: 76705

== ENCOUNTER 2023-06-29 08:40 | Day surgery (SDC) | payer OTHER, MEDICARE, SELFPAY ==
[2023-06-24 13:49] VITALS: BMI 25.9
[2023-06-29] VITALS (11 sets, daily range): BP systolic 110–132; BP diastolic 58–79; PULSE 64–168; RESP 14–18; TEMP 36.1–36.4; O2SAT 95–100; BMI 24.3
[2023-06-29] MEDS: LACTATED RINGERS 1,000 ML 42 ML IV ×2 (09:15→12:23)
--- NOTE | 2023-06-29 10:52 | PM.PREOP ---
Pre-operative Note COVID-19 COVID-19 status: Not tested Interval Note History & Physical reviewed/Exam performed by Physician: Yes Changes to H&P: No ASA Class (for procedural sedation): II
[2023-06-29] MEDS: CEFAZOLIN 2 GM/100 ML PREMIX 100 ML IV (11:25)
--- NOTE | 2023-06-29 11:40 | SUR.OPER ---
Supine on padded OR bed, head on pillow, arms secured on padded arm boards at <90 degrees abduction, legs uncrossed, safety belt at thigh, tape over blanket over lower legs.
[2023-06-29] MEDS: BUPIVACAINE 0.5% (PF) 30 ML, EPINEPHrine 0.15 MG INJ (11:47)
--- NOTE | 2023-06-29 13:01 | PM.OP.1 ---
Operative Date/Time/Diagnoses Date of procedure: 06/29/23 Time of procedure: 13:01 Pre-op diagnosis: Right inguinal and umbilical hernia Post-op diagnosis: same Procedure & Clinicians Procedure: Open right inguinal hernia repair with mesh Open umbilical hernia repair Same procedure as scheduled: Yes Surgeon: Gil Gómez Anesthesia Type: General Operative Notes Procedure in detail: Preoperative antibiotic was administered. The patient was brought to the operating room and placed on the table in supine position general anesthesia was induced. The right groin was prepped and draped in the normal fashion and a time-out was performed. Roughly 10 mL of local anesthetic were injected into the skin and subcutaneous adipose tissue over the right groin. A 6 cm incision was made over the right inguinal canal. Dissection was carried down through the subcutaneous adipose tissue. We exposed the external oblique aponeurosis in the direction of the fibers. Additional local was injected deep to the aponeurosis. A 15 blade scalpel was used to liudmila the external oblique aponeurosis. Metzenbaum scissors were used to carefully open the aponeurosis in the direction of the fibers taking care not to injure the underlying ilioinguinal nerve which was well seen and protected. We completely exposed the inguinal canal. The cord was dissected free from the inguinal ligament and floor of the inguinal canal and the external oblique aponeurosis was dissected off of the internal oblique taking care not to injure the hypogastric nerve. We encircled the cord with a Marlin drain for retraction. There was a rather large indirect hernia. The sac was dissected off cord structures along with a cord lipoma and reduced into the abdomen. We then placed a polypropylene mesh against the floor of the inguinal canal. The mesh was secured with multiple interrupted 3-0 Prolene sutures to the pubic tubercle and shelving edge of the inguinal ligament as well as to the conjoint tendon medially. We overlapped the tails to recreate an internal ring and secured the medial tail to the inguinal ligament with additional sutures. We injected some more local into the fatty tissue in the inguinal canal and cord. Finally, we removed the Marlin drain and closed the external oblique fascia with a running 3-0 Vicryl suture. Skin was closed with interrupted 3-0 Vicryl dermal sutures and a running 4 Monocryl subcuticular stitch. We then moved onto the umbilical hernia. 3 cm curvilinear infraumbilical incision was created. We dissected the hernia sac off of the umbilical stalk. The hernia sac was reduced into the abdominal cavity. The defect was about 1 cm. We closed the defect primarily with 3 interrupted 0 sutures. No mesh was placed due to the small size. We then placed a single 3-0 Vicryl stitch to tack the umbilical stalk back down to the deep tissue. The skin incision was then closed in layers using multiple interrupted 3-0 Vicryl dermal sutures and a running 4-0 Monocryl subcuticular closure. Sterile dressings were applied to both incisions EBL 15 mL The patient was awakened and brought to recovery room. Post-operative Condition: stable Disposition: PACU
[2023-06-29] MEDS: OXYCODONE/ACETAMINOPHEN 5/325 TABLET 1 TAB PO (14:00)
== END 2023-06-29 14:30 | disposition home or self-care (01) ==
PROVIDERS: PCP Family Medicine; Referring Provider Surgery; Visit Provider Surgery
PROC: (CPT 49591; principal; 2023-06-29 09:45)
PROC: (CPT 49591; 2023-06-29 09:45)
DX: K40.90 Unilateral inguinal hernia, without obstruction or gangrene, not specified as recurrent (principal); K42.9 Umbilical hernia without obstruction or gangrene; D17.6 Benign lipomatous neoplasm of spermatic cord
CPT/HCPCS: 49591; 49505; J0171; J0330; J0690; J1100; J2405; J2704; J3010

== ENCOUNTER → 2024-01-07 11:40 | Outpatient (CLI) | payer OTHER, MEDICARE, SELFPAY ==
[2024-01-07 14:52] LABS: Add Manual Diff / Slide Review NO; Basophils Absolute Auto 0 /uL (0-100); Basophils Percent Auto 0.8 % (0-2); Eosinophils Absolute Auto 100 /uL (0-450); Eosinophils Percent Auto 1.4 % (2-4); Hematocrit 41.7 % (41-53); Hemoglobin 14.2 g/dL (13.5-17.5); Lymphocytes Absolute Auto 1300 /uL (1100-4500); Lymphocytes Percent Auto 27.8 % (25-40); Mean Corpuscular Hemoglobin 32.1 PG (26-34); Mean Corpuscular Volume 94.3 fL (80-100); Monocytes Absolute Auto 300 /uL (0-900); Monocytes Percent Auto 6.9 % (3-14); Neutrophils Absolute Auto 3000 /uL (1500-7000); Neutrophils Percent Auto 63.1 % (50-75); Platelet Count 178 X10^3/uL (150-400); Red Blood Cell Count 4.42 X10^6/uL (4.5-5.9); Red Cell Distribution Width 12.9 % (11.6-14.8); White Blood Cell Count 4.7 X10^3/uL (4.5-11.0)
[2024-01-07 15:07] LABS: Alanine Aminotransferase 31 IU/L (<50); Albumin 4.3 g/dL (3.5-5.0); Albumin Globulin Ratio 1.8 (1.0-2.8); Alkaline Phosphatase 47 U/L (38-126); Aspartate Aminotransferase 34 IU/L (17-59); BUN Creatinine Ratio 23.5 (6-22); Bilirubin Total 0.7 mg/dL (0.2-1.3); Blood Urea Nitrogen 23 mg/dL (9-20); Calcium 9.1 mg/dL (8.4-10.2); Carbon Dioxide 29 mmol/L (22-32); Chloride 105 mmol/L (98-107); Cholesterol 141 mg/dL (140-199); Estimated Glomerular Filt Rate > 60 mL/min (>60); Globulin 2.4 g/dL (1.7-4.1); Glucose 105 mg/dL (80-110); HDL Cholesterol 48 mg/dL (40-60); HEMOLYSIS < 15 (0-50); LDL Cholesterol Calculated 77 mg/dL (<100); Potassium 4.6 mmol/L (3.4-5.1); Sodium 139 mmol/L (137-145); Total Protein 6.7 g/dL (6.3-8.2); Triglycerides 78 mg/dL (35-150)
[2024-01-07 15:35] LABS: Creatinine Urine Random 145.88 mg/dL
[2024-01-07 15:48] LABS: Microalbumin Urine Random < 0.6 mg/dL (0-1.6)
== END ==
PROVIDERS: PCP Family Medicine; Referring Provider Family Medicine; Visit Provider Family Medicine
DX: E78.2 Mixed hyperlipidemia (principal); I25.10 Atherosclerotic heart disease of native coronary artery without angina pectoris; F90.9 Attention-deficit hyperactivity disorder, unspecified type; J43.9 Emphysema, unspecified; R91.1 Solitary pulmonary nodule
CPT/HCPCS: 80053; 80061; 82043; 82172; 82570; 84443; 85025

== ENCOUNTER → 2024-07-20 14:57 | Outpatient (CLI) | payer OTHER, MEDICARE, SELFPAY | PROVIDERS: PCP Family Medicine; Visit Provider Urology | DX: N40.1 Benign prostatic hyperplasia with lower urinary tract symptoms (principal); R35.1 Nocturia; R35.0 Frequency of micturition; N52.9 Male erectile dysfunction, unspecified | CPT/HCPCS: 52000; 76872; 81002; 87086; 99213 ==

== ENCOUNTER 2024-08-31 12:19 | Day surgery (SDC) | payer OTHER, MEDICARE, SELFPAY ==
--- NOTE | 2024-08-31 | PATH_ITS ---
[facility] Accession Number: [id number] No. of containers..01 Tissue . 01 Material submitted: . colon - SIGMOID POLYP . 01 Diagnosis: SIGMOID POLYP: Hyperplastic polyp. STO 09/04/2024 1227 Local . 01 Electronically signed: . Mina Trevino MD, Pathologist NPI- [id number] . 01 Gross description: . SIGMOID POLYP: Received in formalin is 1 fragment(s) of mueller, soft tissue measuring 0.7 x 0.3 x 0.2 cm submitted entirely in 1 cassette(s) /LEIGHA 09/04/2024 122 Local . 01 Pathologist provided ICD-10: K63.5 . 01 CPT . 049862 Specimen Comment: A courtesy copy of this report has been sent to [facility] Pathology Performed at: [address] [id number] MD Mina Trevino MD Phone: [phone]
[2024-08-31 13:26] VITALS: BP 134/71; PULSE 65; RESP 16; TEMP 36.4; O2SAT 99
[2024-08-31] MEDS: LACTATED RINGERS 1,000 ML 42 ML IV (13:29)
--- NOTE | 2024-08-31 13:37 | PM.HP.IH.1 ---
History of Present Illness History of Present Illness Date Patient Seen: 08/31/24 Time Patient Seen: 13:37 Chief complaint: Colonoscopy Narrative: 74-year-old white male presents 10 years following his last colonoscopy. No polyps. No changes in bowel habits. [facility] Medical History (Updated 08/31/24 @ 13:37 by Jeffery Silveira MD) Colon cancer screening Short-term memory loss BPH (benign prostatic hyperplasia) Viral wart Pancreatitis Abdominal distension Icterus Hepatic dysfunction Emphysema lung Pulmonary nodule 1 cm or greater in diameter Coronary artery disease Vision disorder Erectile dysfunction ADHD Shoulder pain Chronic back pain Measles Chicken pox Tinnitus Hearing loss Cataracts, bilateral Surgical History History of cataract removal with insertion of prosthetic lens History of cataract removal with insertion of prosthetic lens Status post rotator cuff repair Status post rotator cuff repair Status post tonsillectomy and adenoidectomy Family History Father CAD (coronary artery disease) Parkinson's disease Alzheimer's disease Grandmother Cancer Mother MS (multiple sclerosis) Social History household members: spouse Smoking Status: Former smoker alcohol intake: former Meds Home Medications and Allergies Home Medications Medication Instructions Recorded Confirmed Type sildenafil 100 mg tablet (Viagra) 100 mg PO DAILY PRN sexual 05/16/20 07/20/24 Rx activity #20 tabs cholecalciferol (vitamin D3) 50 50 mcg PO DAILY 01/30/22 07/20/24 History mcg (2,000 unit) capsule multivitamin 1 tab PO DAILY 01/30/22 07/20/24 History albuterol sulfate 90 mcg/actuation 2 puff inhalation BID PRN 10/15/22 07/20/24 Rx aerosol inhaler (Proventil HFA) shortness of breath or wheezing #8.5 grams buspirone 10 mg tablet See Rx Instructions .Route 06/28/23 07/20/24 Rx .COMPLEX #360 tabs simvastatin 40 mg tablet (Zocor) 40 mg PO Q DAY #90 tabs 11/10/23 08/31/24 Rx donepezil 10 mg tablet 10 mg PO DAILY 12/16/23 08/31/24 History prazosin 1 mg capsule 2 mg (2 x 1 mg) PO ONCE PM #180 12/16/23 08/31/24 Rx caps Parking Permit... #1 ea 04/10/24 07/20/24 Rx nabumetone 500 mg tablet 1,000 mg (2 x 500 mg) PO DAILY PRN 04/13/24 08/31/24 Rx pain #180 tabs tolterodine 2 mg capsule,extended 2 mg PO DAILY #60 caps 05/17/24 07/20/24 Rx release 24 hr trazodone 150 mg tablet 150 mg PO BEDTIME #90 tabs 06/21/24 07/20/24 Rx hydrocodone 5 mg-acetaminophen 325 1 tab PO Q6HP PRN pain #50 tabs 06/27/24 07/20/24 Rx mg tablet lisinopril 5 mg tablet 5 mg PO DAILY #90 tabs 07/22/24 08/31/24 Rx lorazepam 1 mg tablet See Rx Instructions .Route 08/03/24 Rx .COMPLEX #60 tabs Allergies Allergy/AdvReac Type Severity Reaction Status Date / Time No Known Drug Allergies Allergy Verified 08/31/24 13:20 Exam Vital Signs (past 8 hours): - 08/31/24 13:26 Temperature 97.6 F Pulse Rate 65 Respiratory Rate 16 Blood Pressure 134/71 Pulse Oximetry 99 Oxygen Delivery Method Room Air Oxygen Delivery Method Room Air Narrative Exam Narrative: Gen: NAD, sitting comfortably in bed, appears well HEENT: Sclera are anicteric, head is normocephalic and atraumatic, trachea is midline. CV: RRR, no JVD Resp: clear to auscultation bilaterally, equal chest wall movement bilaterally Abd: soft, nontender, normoactive bowel sounds Ext: no edema, full range of motion Neuro: Cranial nerves II-XII grossly intact, no focal deficits Skin: No erythema or ecchymosis Assessment & Plan Assessment and plan (1) Colon cancer screening: Status: Acute Assessment & Plan narrative: Patient presents for colonoscopy Risks, benefits, alternatives to colonoscopy explained, including but not limited to bowel perforation or other serious complication requiring surgery at less than 1 in 5000 colonoscopies, abdominal pain, cramping or bleeding and less than 1% of colonoscopies, and the chances that we find a diagnosis that would require further intervention of about 2%. Patient agrees to proceed. Time-Based Coding :: [TOTAL MINUTES] spent with patient and on the chart (including review of chart, obtaining history, exam, reviewing outside data, placing orders, documenting exam and treatment plan, and counseling patient) on [DATE]. 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
[2024-08-31 14:00] VITALS: BP 91/48; PULSE 57; RESP 17; TEMP 36.8; O2SAT 95
--- NOTE | 2024-08-31 14:01 | PM.OP.COLON ---
Operative Date/Time/Diagnoses Date of procedure: 08/31/24 Time of procedure: 14:01 Pre-op diagnosis: Colon screening Post-op diagnosis: same (Sigmoid polyp) Procedure & Clinicians Study performed: Colonoscopy with cold snare polypectomy Same procedure as scheduled: Yes Indications: Colon screening Surgeon: Jeffery Silveira Procedure Notes SCOAP/Timeout: Performed Procedure in detail: Time-out was performed. Mac was induced. Patient was placed in left lateral decubitus position. The perineum was inspected without any gross abnormality. Lubricated pediatric colonoscope was inserted and advanced to the cecum. The terminal ileum was intubated. The colonoscope was withdrawn slowly inspecting the circumference of the colon. A small, benign-appearing polyp was noted in the sigmoid colon. Cold snare polypectomy was used completely remove this polyp. It was retrieved. Very small polyps may have been missed, prep quality was adequate. Retroflexed view of the rectum showed small, non prolapsed nonbleeding internal hemorrhoids. The scope was withdrawn the patient was taken to PACU in good condition. Scope withdrawal time: 7 Sedation minutes: 15 Findings: polyp(s) Specimen(s): other (1. Sigmoid polyp) Complications: none Post-procedure Recommendations: Colonoscopy in 10 years (Next colonoscopy in 7-10 years) Follow up: as needed Disposition: PACU
[2024-08-31 14:09] VITALS: BP 96/54; PULSE 56; RESP 18; O2SAT 96
[2024-08-31 14:14] VITALS: BP 96/49; PULSE 56; RESP 12; O2SAT 99
== END 2024-08-31 14:53 | disposition home or self-care (01) ==
PROVIDERS: PCP Family Medicine; Referring Provider Surgery; Visit Provider Surgery
PROC: 0DJD8ZZ Inspection of Lower Intestinal Tract, Via Natural or Artificial Opening Endoscopic (ICD-10-PCS; CPT 45378; principal; 2024-08-31 13:30)
DX: Z12.11 Encounter for screening for malignant neoplasm of colon (principal); K63.5 Polyp of colon
CPT/HCPCS: 45385; J2704

== ENCOUNTER → 2024-09-05 16:40 | Outpatient (CLI) | payer OTHER, MEDICARE, SELFPAY ==
[2024-09-05 18:22] LABS: Add Manual Diff / Slide Review NO; Basophils Absolute Auto 0 /uL (0-100); Basophils Percent Auto 0.6 % (0-2); Eosinophils Absolute Auto 100 /uL (0-450); Eosinophils Percent Auto 1.1 % (2-4); Hematocrit 41.4 % (41-53); Hemoglobin 14.1 g/dL (13.5-17.5); Lymphocytes Absolute Auto 1600 /uL (1100-4500); Lymphocytes Percent Auto 24.6 % (25-40); Mean Corpuscular Volume 94.1 fL (80-100); Monocytes Absolute Auto 500 /uL (0-900); Monocytes Percent Auto 7.5 % (3-14); Neutrophils Absolute Auto 4400 /uL (1500-7000); Neutrophils Percent Auto 66.2 % (50-75); Platelet Count 185 X10^3/uL (150-400); Red Cell Distribution Width 13.2 % (11.6-14.8); White Blood Cell Count 6.7 X10^3/uL (4.5-11.0)
[2024-09-05 19:14] LABS: Alanine Aminotransferase 35 IU/L (<50); Albumin 4.6 g/dL (3.5-5.0); Albumin Globulin Ratio 1.9 (1.0-2.8); Alkaline Phosphatase 48 U/L (38-126); Aspartate Aminotransferase 40 IU/L (17-59); BUN Creatinine Ratio 34.8 (6-22); Bilirubin Total 0.6 mg/dL (0.2-1.3); Blood Urea Nitrogen 32 mg/dL (9-20); Calcium 9.5 mg/dL (8.4-10.2); Carbon Dioxide 27 mmol/L (22-32); Chloride 102 mmol/L (98-107); Estimated Glomerular Filt Rate > 60 mL/min (>60); Globulin 2.4 g/dL (1.7-4.1); Glucose 86 mg/dL (80-110); HEMOLYSIS < 15 (0-50); Sodium 138 mmol/L (137-145)
[2024-09-05 19:45] LABS: Prostate Specific Antigen Scrn 2.81 ng/mL (0.1-4.0)
[2024-09-05 19:47] LABS: TSH w/ Reflex to FT4 1.36 uIU/mL (0.47-4.68)
[2024-09-05 20:07] LABS: Vitamin B12 574 pg/mL (239-931)
== END ==
LOC: LAB 16:43
PROVIDERS: Urology; PCP Family Medicine; Referring Provider Family Medicine; Visit Provider Family Medicine
DX: Z12.5 Encounter for screening for malignant neoplasm of prostate (principal); R61 Generalized hyperhidrosis; M54.9 Dorsalgia, unspecified; G89.29 Other chronic pain
CPT/HCPCS: 36415; 80053; 82607; 84443; 85025; G0103

== ENCOUNTER → 2024-10-09 09:55 | Outpatient (CLI) | payer OTHER, MEDICARE, SELFPAY ==
[2024-10-09 10:43] LABS: Add Manual Diff / Slide Review NO; Basophils Absolute Auto 0 /uL (0-100); Basophils Percent Auto 0.6 % (0-2); Eosinophils Absolute Auto 100 /uL (0-450); Eosinophils Percent Auto 1.1 % (2-4); Hematocrit 41.5 % (41-53); Hemoglobin 14.4 g/dL (13.5-17.5); Lymphocytes Absolute Auto 1300 /uL (1100-4500); Lymphocytes Percent Auto 20.5 % (25-40); Mean Corpuscular HGB Conc 34.7 % (30-36); Mean Corpuscular Hemoglobin 32.6 PG (26-34); Monocytes Absolute Auto 500 /uL (0-900); Neutrophils Absolute Auto 4600 /uL (1500-7000); Neutrophils Percent Auto 69.8 % (50-75); Platelet Count 171 X10^3/uL (150-400); Red Blood Cell Count 4.41 X10^6/uL (4.5-5.9); Red Cell Distribution Width 13.6 % (11.6-14.8); White Blood Cell Count 6.6 X10^3/uL (4.5-11.0)
[2024-10-09 11:08] LABS: Alanine Aminotransferase 36 IU/L (<50); Albumin 4.6 g/dL (3.5-5.0); Albumin Globulin Ratio 2.2 (1.0-2.8); Alkaline Phosphatase 65 U/L (38-126); Aspartate Aminotransferase 36 IU/L (17-59); BUN Creatinine Ratio 26.6 (6-22); Bilirubin Total 0.4 mg/dL (0.2-1.3); Blood Urea Nitrogen 34 mg/dL (9-20); Calcium 9.7 mg/dL (8.4-10.2); Carbon Dioxide 25 mmol/L (22-32); Chloride 105 mmol/L (98-107); Cholesterol 155 mg/dL (140-199); Estimated Glomerular Filt Rate 59 mL/min (>60); Globulin 2.1 g/dL (1.7-4.1); Glucose 117 mg/dL (80-110); HDL Cholesterol 41 mg/dL (40-60); HEMOLYSIS < 15 (0-50); LDL Cholesterol Calculated 55 mg/dL (<100); Potassium 4.9 mmol/L (3.4-5.1); Sodium 140 mmol/L (137-145); Total Protein 6.7 g/dL (6.3-8.2); Triglycerides 297 mg/dL (35-150)
[2024-10-09 15:06] LABS: Creatinine Urine Random 160.76 mg/dL
[2024-10-09 15:12] LABS: Microalbumin Urine Random < 0.6 mg/dL (0-1.6)
[2024-10-10 03:39] LABS: Apolipoprotein B 69 mg/dL (<90)
== END ==
PROVIDERS: PCP Family Medicine; Referring Provider Family Medicine; Visit Provider Family Medicine
DX: E78.2 Mixed hyperlipidemia (principal); H53.123 Transient visual loss, bilateral; N40.1 Benign prostatic hyperplasia with lower urinary tract symptoms; I25.10 Atherosclerotic heart disease of native coronary artery without angina pectoris
CPT/HCPCS: 36415; 80053; 80061; 82043; 82172; 82570; 85025

== ENCOUNTER → 2024-10-09 11:45 | Outpatient (CLI) | payer OTHER, MEDICARE, SELFPAY ==
--- NOTE | 2024-10-09 11:47 | DI.CT.S_ITS ---
PROCEDURE: CT ANGIO HEAD AND NECK INDICATIONS: episodes of vision loss. TECHNIQUE: After the administration of intravenous contrast, 1 mm thick sections acquired from the aortic arch through the [place]. 3-dimensional dvhivuk-nkdwxlafs-qjkcobmpmh (MIP) and/or volume rendering reformats were acquired of the central intracranial vasculature and neck separately. For radiation dose reduction, the following was used: automated exposure control, adjustment of mA and/or kV according to patient size. COMPARISON: None. FINDINGS: Image quality: Diagnostic. BRAIN: CSF spaces: Ventricles are normal in size and shape. Basal cisterns are patent. No extra-axial fluid collections. Brain: No significant abnormality of the brain can be seen. Skull and face: Calvarium and facial bones appear intact, without suspicious lesions. Orbits appear normal. Sinuses: Sinuses and mastoids are clear. HEAD CT ANGIOGRAPHY: Anterior circulation: Intracranial internal carotid arteries are normal in size and flow. The flow within the paired anterior cerebral arteries is normal and symmetric. The flow within the middle cerebral arteries is normal and symmetric. The anterior communicating artery is seen. No aneurysms are seen. Posterior circulation: Visualized portions of the vertebral arteries demonstrate normal caliber, and join to form a normal appearing basilar artery. Flow within the posterior cerebral arteries is normal and symmetric. No aneurysms are seen. NECK CT ANGIOGRAPHY: Carotid system: The great vessels demonstrate a conventional anatomy as they arise from the aortic arch. The origins of the common carotid arteries appear patent. The common carotid arteries demonstrate normal caliber and courses. The bifurcation regions are both widely patent. The internal carotid arteries demonstrate normal calibers and courses. Posterior circulation: The origins of the vertebral arteries both appear widely patent. The more superior extracranial portions of both vertebral arteries also demonstrate normal courses and calibers. They join to form a normal appearing basilar artery. Soft tissues: Visualized neck soft tissues demonstrate no suspicious abnormalities. Bones: No suspicious bony lesions. Visualized cervical spine appears normally aligned. IMPRESSION: 1. No hemodynamically significant stenosis or aneurysm is seen in the intracranial circulation. 2. No hemodynamically significant stenosis is noted in bilateral neck arteries. Any quantitative measurements of stenosis were performed using NASCET criteria. Dictated by: Tam Richards M.D. on 10/09/2024 at 12:26 Approved by: Tam Richards M.D. on 10/09/2024 at 12:28
== END ==
PROVIDERS: PCP Family Medicine; Referring Provider Family Medicine; Visit Provider Family Medicine
DX: H53.123 Transient visual loss, bilateral (principal); E78.2 Mixed hyperlipidemia; N40.1 Benign prostatic hyperplasia with lower urinary tract symptoms; I25.10 Atherosclerotic heart disease of native coronary artery without angina pectoris
CPT/HCPCS: 36415; 70496; 70498; 80053; 80061; 82043; 82172; 82570; 85025; Q9967

== ENCOUNTER → 2024-10-23 14:23 | Outpatient (CLI) | payer OTHER, MEDICARE, SELFPAY ==
[2024-10-23 14:31] LABS: Appearance Urine UA CLEAR; Bilirubin Urine UA NEGATIVE (NEGATIVE); Color Urine UA YELLOW; Glucose Urine UA NEGATIVE (Negative); Ketones Urine UA NEGATIVE (NEGATIVE); Leukocyte Esterase Urine UA NEGATIVE (NEGATIVE); Nitrite Urine UA NEGATIVE (Negative); Occult Blood Urine UA NEGATIVE (Negative); Protein Urine UA NEGATIVE (Negative); Specific Gravity Urine UA 1.025 (1.000-1.035); Urobilinogen Urine UA 0.2 E.U./dL (0.2); pH Urine UA 5.5 (4.5-8.0)
[2024-10-23 14:33] LABS: Urine Volume 10mL (spun)
[2024-10-23 14:34] LABS: Bacteria Urine None Seen; Culture Indicated Urine Cult Not Indicated; RBC Urine None Seen (0-5/HPF); Squamous Epithelial Cell Urine None Seen (0-5/HPF); WBC Urine None Seen (0-5/HPF)
== END ==
PROVIDERS: PCP Family Medicine; Visit Provider Urology
DX: N40.1 Benign prostatic hyperplasia with lower urinary tract symptoms (principal)
CPT/HCPCS: 81001

== ENCOUNTER 2024-11-06 08:34 | Day surgery (SDC) | payer OTHER, MEDICARE, SELFPAY ==
[2024-11-02 13:24] VITALS: BMI 27.8
[2024-11-06] VITALS (17 sets, daily range): BP systolic 115–148; BP diastolic 55–82; PULSE 52–76; RESP 12–16; TEMP 36.1–36.6; O2SAT 91–100; BMI 26.7
--- NOTE | 2024-11-06 | PATH_ITS ---
[facility] Accession Number: [id number] No. of containers..01 Tissue . 01 Material submitted: . prostate - PROSTATE CHIPS . 01 Diagnosis: PROSTATE CHIPS (11 GRAMS), TRANSURETHRAL RESECTION: Benign prostatic hyperplasia. No evidence of malignancy. [facility] 11/08/2024 1439 Local . 01 Electronically signed: . Christina Dominique MD, Pathologist NPI- [id number] . 01 Gross description: . Received in formalin with two identifiers and prostate chips, are multiple mueller soft tissue fragments admixed with a moderate amount of hemorrhagic material weighing 11 grams and aggregating to 7.8 x 6.5 x 1.9 cm. All mueller soft tissue fragments are submitted in A1-A10. ([id number]) /MRV 11/07/2024 1328 Local . 01 Pathologist provided ICD-10: N40.0 . 01 CPT . 614736 Specimen Comment: A courtesy copy of this report has been sent to [facility] Performed at: [address] [id number] MD Mina Trevino MD Phone: [phone]
[2024-11-06] MEDS: LACTATED RINGERS 1,000 ML 21 ML IV ×2 (09:07→11:57)
--- NOTE | 2024-11-06 10:39 | PM.PREOP ---
Pre-operative Note COVID-19 COVID-19 status: Not tested Interval Note History & Physical reviewed/Exam performed by Physician: Yes Changes to H&P: No
[2024-11-06] MEDS: levoFLOXacin 500 MG/100 ML PIGGYBACK 100 MG IV (11:18)
--- NOTE | 2024-11-06 11:37 | SUR.OPER ---
Lithotomy on padded OR bed, head on pillow, arms secured on padded arm boards at <90 degrees abduction. Legs secured in padded yellow fins stirrups.
[2024-11-06] MEDS: LIDOCAINE 2% (GLYDO) 6 ML GEL TOP (12:40)
[2024-11-06] MEDS: ACETAMINOPHEN IV 1,000 MG/100 ML VIAL 400 MG IV (12:50)
--- NOTE | 2024-11-06 13:07 | P.OP_ITS ---
Operative Date/Time/Diagnoses Date of procedure: 11/06/24 Pre-op diagnosis: Benign prostatic hyperplasia with lower urinary tract symptoms Post-op diagnosis: same Procedure & Clinicians Procedure: Cystoscopy Aquablation Same procedure as scheduled: Yes Indications: 74 y/o M noted to have symptoms consistent w/ BPH and LUTS that are not well controlled with oral medications and strongly desired surgical management via an Aquablation procedure. Surgeon: Hay Kent Click Yes if Unassisted: Yes Anesthesia Type: General Operative Notes Findings: Coaptating lateral prostatic lobes, small intravesical median lobe Specimen(s): other (prostate chips) Applied: catheter Estimated Blood Loss (mL): 50 Blood products transfused: none Procedure in detail: After informed consent was obtained, the patient was identified brought to the operating room where he was placed in his supine position on the table.? Once there anesthesia was induced and maintained.? Ensuring an adequate level of anesthesia the patient was transitioned to the lithotomy position where after time-out he was prepped.? After prepping, ensuring an adequate level of anesthesia, administration IV antibiotics and time-out 60 cc of ultrasound gel was instilled within the rectum and the ultrasound probe which had been attached to the TRUS stepper which was attached to the TRUS stepper articulating arm which was secured to the bed was advanced into the rectum under direct vision via the ultrasound.? The ultrasound probe was then aligned and confirmation made that the prostate was centered and aligned in both the sagittal and transverse views.? The bladder neck, verumontanum, central and transitional zones were identified.? With the ultrasound in place and adjusted the patient was then draped in a sterile fashion. With the patient draped the [place] aqua beam handpiece was then inserted through the urethra and advanced into the bladder.? Cystoscopy was then performed and no concerning bladder mass or lesions were noted.? Bilateral ureteral orifices were noted to be orthotopic in nature.? As the cystoscope was advanced the level of the sphincter, verumontanum, bladder neck were all identified via ultrasound and under direct vision.? The aqua beam hand place was then secured to the handpiece articulating arm which had been secured to the bed.? The Aquablation handpiece and TRUS probe were confirmed to be parallel and colinear.? Confirmation was then made that the aqua beam handpiece and nozzle was centered and anterior to the bladder neck.? The cystoscope was then retracted under direct vision in the sphincter and verumontanum were identified.? The tip of the cystoscope was then placed proximal to the external sphincter.? Compression was applied with the TRUS probe to the prostate.? The alignment of the TRUS probe and aqua beam handpiece was once again confirmed.? Horizontal alignment of the handpiece water jet was then performed.? With these adjustments made, the treatment zones were then planned using real-time ultrasound.? In the largest transverse view of the prostate the depth and radial angles were determined and set again in the transverse view of the prostate.? In the longitudinal and sagittal view the Aquablation nozzle was identified and its position registered with the software and robot.? The treatment contours were then determined and adjusted to reflect the intended margins of resection.? Following our plan confirmation, the Aquablation resection treatment was started.? A 2nd pass was then completed in similar fashion after the 1st pass had been completed.? At this point, the Aqua hand piece was removed from the urethra. The 26Fr resectoscope was then inserted into the urethra and cystoscopy was repeated.? The [employer] trust operations assistant was utilized to evacuate the blood clots from the bladder.? The bladder neck was then resected using the bipolar Gyrus loop.? Bilateral ureteral orifices were again identified and noted to be intact at case end.? Hemostasis was obtained and noted to be excellent at case end.? The resectoscope was then removed and a 24Fr Binu 3-way hematuria catheter was inserted through the urethra and into the bladder.? 45cc of sterile water was utilized for balloon insufflation.? Efflux was noted to be clear at case end.? Anesthesia was reversed, he was extubated in the OR and transferred to the PACU in stable condition for recovery. Complications: none Post-operative Condition: stable Disposition: PACU Plan for aftercare: Will continue to run CBI for a few hours to evaluate the efflux from his catheter.? Should it remain relatively clear and with minimal blood clots, will discharge home with catheter in place and have him return to Urology clinic in 2 days for a voiding trial.? Should his efflux remain red or have significant clot burden, will admit overnight for observation and continued CBI.
[2024-11-06] MEDS: OXYBUTYNIN 5 MG TABLET PO (13:43)
[2024-11-06] MEDS: PHENAZOPYRIDINE 100 MG TABLET 200 MG PO (13:43)
[2024-11-06] MEDS: OXYCODONE IR 5 MG TABLET PO (13:43)
[2024-11-06] MEDS: HYDROMORPHONE 1 MG INJ IV (13:43)
== END 2024-11-06 17:20 | disposition home or self-care (01) ==
PROVIDERS: PCP Family Medicine; Referring Provider Urology; Visit Provider Urology
PROC: 0VT08ZZ Resection of Prostate, Via Natural or Artificial Opening Endoscopic (ICD-10-PCS; CPT 0421T; principal; 2024-11-06 10:00)
DX: N40.1 Benign prostatic hyperplasia with lower urinary tract symptoms (principal); N52.9 Male erectile dysfunction, unspecified; R35.0 Frequency of micturition; R39.15 Urgency of urination; R35.1 Nocturia
CPT/HCPCS: 0421T; C2596; J0131; J1100; J1171; J1956; J2250; J2704; J3010

== ENCOUNTER → 2024-11-08 14:33 | Outpatient (CLI) | payer OTHER, MEDICARE, SELFPAY | PROVIDERS: PCP Family Medicine; Visit Provider Urology | DX: N40.1 Benign prostatic hyperplasia with lower urinary tract symptoms (principal) | CPT/HCPCS: 87086 ==

== ENCOUNTER → 2024-12-20 14:13 | Outpatient (CLI) | payer OTHER, MEDICARE, SELFPAY | PROVIDERS: PCP Family Medicine; Visit Provider Urology | DX: N40.1 Benign prostatic hyperplasia with lower urinary tract symptoms (principal); R35.1 Nocturia; N52.9 Male erectile dysfunction, unspecified; Z12.5 Encounter for screening for malignant neoplasm of prostate | CPT/HCPCS: 51798; 81002; 87086; 99213 ==

== ENCOUNTER → 2025-01-15 12:24 | Outpatient (CLI) | payer OTHER, MEDICARE, SELFPAY ==
[2025-01-15 13:49] LABS: Alanine Aminotransferase 31 IU/L (<50); Albumin 4.4 g/dL (3.5-5.0); Albumin Globulin Ratio 2.1 (1.0-2.8); Alkaline Phosphatase 56 U/L (38-126); Aspartate Aminotransferase 31 IU/L (17-59); BUN Creatinine Ratio 33.3 (6-22); Bilirubin Total 0.6 mg/dL (0.2-1.3); Blood Urea Nitrogen 30 mg/dL (9-20); Calcium 9.5 mg/dL (8.4-10.2); Carbon Dioxide 26 mmol/L (22-32); Chloride 104 mmol/L (98-107); Estimated Glomerular Filt Rate > 60 mL/min (>60); Globulin 2.1 g/dL (1.7-4.1); Glucose 115 mg/dL (70-99); HEMOLYSIS < 15 (0-50); Potassium 4.7 mmol/L (3.4-5.1); Sodium 140 mmol/L (137-145); Total Protein 6.5 g/dL (6.3-8.2)
== END ==
PROVIDERS: PCP Family Medicine; Referring Provider Family Medicine; Visit Provider Family Medicine
DX: N52.9 Male erectile dysfunction, unspecified (principal); N40.1 Benign prostatic hyperplasia with lower urinary tract symptoms
CPT/HCPCS: 36415; 80053